=== PATIENT | male | born 1965 | race Two or more races ===

== ENCOUNTER 2018-12-17 06:07 | Emergency (ER) | payer OTHER ==
[~2018-12-17] VITALS: Ht 180.3 cm; Wt 122.5 kg
[~2018-12-17 06:07] MED LIST: LOSARTAN POTASS25 MG PO
== END 2018-12-17 10:22 | disposition home or self-care (01) ==
LOC: ER 06:07
DX: M54.5 Low back pain (principal)

== ENCOUNTER 2019-06-11 01:32 | Emergency (ER) | payer OTHER ==
[~2019-06-11] VITALS: Ht 177.8 cm; Wt 122.0 kg
[2019-06-11] MEDS ORDERED: ALBUTEROL2.5 MG/3 M IH (04:58)
[2019-06-11] MEDS ORDERED: SYMBICORT 16010.2 GM IH (04:58)
[2019-06-11] MEDS ORDERED: ZITHROMAX500 MG PO (04:58)
[2019-06-11] MEDS ORDERED: ZYNCOF 20-400120 ML PO (04:58)
== END 2019-06-11 05:16 ==
LOC: ER 01:32
DX: J45.901 Unspecified asthma with (acute) exacerbation (principal)

== ENCOUNTER 2021-02-10 01:17 | Emergency (ER) | payer OTHER ==
[~2021-02-10] VITALS: Ht 177.8 cm; Wt 124.7 kg
[~2021-02-10 01:17] MED LIST changes: +ALBUTEROL2.5 MG/3 M IH; +SYMBICORT 16010.2 GM IH; +ZITHROMAX500 MG PO; +ZYNCOF 20-400120 ML PO
[2021-02-10] MEDS ORDERED: LEVSIN/SL0.125 MG PO (08:27)
[2021-02-10] MEDS ORDERED: INTESTINEX680 M1 PO (08:27)
[2021-02-10] MEDS ORDERED: ONDANSETRON ODT4 MG PO (08:27)
[2021-02-10] MEDS ORDERED: PEPCID AC20 MG PO (08:27)
== END 2021-02-10 08:49 ==
LOC: ER 01:17
DX: K29.60 Other gastritis without bleeding (principal); E86.0 Dehydration; R10.13 Epigastric pain; T62.8X1A Toxic effect of other specified noxious substances eaten as food, accidental (unintentional), initial encounter; Y92.89 Other specified places as the place of occurrence of the external cause

== ENCOUNTER 2021-10-06 16:48 | Outpatient (CLI) | payer OTHER ==
[~2021-10-06 16:48] MED LIST changes: +INTESTINEX680 M1 PO; +LEVSIN/SL0.125 MG PO; +ONDANSETRON ODT4 MG PO; +PEPCID AC20 MG PO
== END 2021-10-06 16:53 | disposition home or self-care (01) ==
LOC: RAD 16:48
PROVIDERS: ATTEND Orthopaedic Surgery
DX: M79.644 Pain in right finger(s) (principal)

== ENCOUNTER 2021-10-17 09:38 | Outpatient (CLI) | payer OTHER | END 2021-10-17 09:50 | disposition home or self-care (01) | LOC: RAD 09:38 | PROVIDERS: ATTEND Orthopaedic Surgery | DX: M79.644 Pain in right finger(s) (principal) ==

== ENCOUNTER 2022-01-07 20:59 | Emergency (ER) | payer OTHER ==
[~2022-01-07] VITALS: Ht 177.8 cm; Wt 124.7 kg
[2022-01-08] MEDS ORDERED: BACTRIM DS TAB1 EACH PO (01:08)
[2022-01-08] MEDS ORDERED: TAMS0.4C PO (01:08)
[2022-01-08] MEDS ORDERED: KETO10TA2 PO (01:08)
== END 2022-01-08 01:15 | disposition home or self-care (01) ==
LOC: ER 20:59
DX: N13.2 Hydronephrosis with renal and ureteral calculous obstruction (principal); R31.9 Hematuria, unspecified; K76.0 Fatty (change of) liver, not elsewhere classified